=== PATIENT | female | born 1945 | race Caucasian/White ===

== ENCOUNTER 2017-02-14 16:47 | Emergency (ER) | payer OTHER ==
[~2017-02-14] VITALS: Ht 160 cm; Wt 49.3 kg
[~2017-02-14 16:47] MED LIST: ALPR-138 PO; ATOR40TA PO; FLUT50SP EACH NARE; HYDR12.56 PO; LEVO50TA4 PO; RANI150T PO; ULTR50TA PO
[2017-02-14 16:51] VITALS: BP 126/60; PULSE 69; RESP 16; TEMP 98; O2SAT 98
[2017-02-14] MEDS ORDERED: LIDOCAINE 1%/EPINEPHrine 1:100,000 SOLN 20 ML VIAL INFIL ONE (17:15)
--- NOTE | 2017-02-14 17:20 | PD ---
HPI Chief Complaint: Fall Time Seen by Provider: 17:14 Travel History International Travel<30 days: No Contact w/Intl Traveler<30days: No Traveled to known affect area: No History of Present Illness HPI 71-year-old female presents the emergency department with her granddaughter after being thrown from the back of a horse. Patient was wearing a riding helmet, and denies significant head trauma or loss of consciousness. She does have pain in the right hip/pelvis and lower back. Patient also has open wound to the right posterior elbow with mild bleeding. Patient has full range of motion of the right arm. Her pain is mainly localized in the right lower back and pelvis. She is able to bear weight. She denies dizziness, headache, neck pain, chest pain, thoracic wall pain, abdominal pain, or lower extremity pain of any kind. She is allergic to codeine. PFSH Past Medical History Anxiety: Yes Depression: Yes Cancer: No Cardiovascular Problems: No High Cholesterol: Yes Diabetes: No Diminished Hearing: No Endocrine: Yes GERD: Yes Genitourinary: No Immune Disorder: No Musculoskeletal: Yes Neurologic: No Psychiatric: Yes Reproductive: No Respiratory: No Thyroid Disease: Yes Menopausal: Yes Past Surgical History Oral Surgery: Yes (TONSILLECTOMY) Tonsillectomy: Yes Social History Alcohol Use: Yes (OCCASIONAL) Tobacco Use: No Substance Use: No Allergies-Medications (Allergen,Severity, Reaction): Coded Allergies: Codeine (Unverified Adverse Reaction, Unknown, nausea, 12/24/14) Reported Meds & Prescriptions Reported Meds & Active Scripts Active Ibuprofen 600 Mg Tab 600 Mg PO Q6H PRN Cephalexin 500 Mg Cap 500 Mg PO Q8H Bactrim DS (Sulfamethoxazole-Trimethoprim) 800-160 Mg Tab 1 Tab PO BID Non-Aspirin Pain Relief ES (Acetaminophen) 500 Mg Tab 1,000 Mg PO Q6HR PRN Ultram (Tramadol HCl) 50 Mg Tab 50 Mg PO Q6 PRN Reported Fluticasone Propionate (Nasal) 50 Mcg Spr 1 [place] EACH NARE BID Ranitidine 150 mg (Ranitidine HCl) 150 Mg Tab 1 Tab PO BID Levothyroxine 50 mcg (Levothyroxine Sodium) 50 Mcg Tab 50 Mcg PO DAILY Hydrochlorothiazide (Miscellaneous Medication) 12.5 Mg Cap 12.5 Mg PO DAILY Atorvastatin 40 mg (Atorvastatin Calcium) 40 Mg Tab 1 Tab PO HS Xanax (Alprazolam) 0.25 Mg Tab 0 PO BID UNKNOWN DOSE Review of Systems Except as stated in HPI: all other systems reviewed are Neg General / Constitutional: No: Fever Eyes: No: Visual changes HENT: No: Headaches Cardiovascular: No: Chest Pain or Discomfort Respiratory: No: Shortness of Breath Gastrointestinal: No: Abdominal Pain Genitourinary: No: Dysuria Musculoskeletal: No: Pain Skin: No Rash Neurologic: No: Weakness Psychiatric: No: Depression Endocrine: No: Polydipsia Hematologic/Lymphatic: No: Easy Bruising Physical Exam Narrative GENERAL: Patient appears in mild to moderate distress. Patient is ambulating with some difficulty. SKIN: Warm and dry. Normal color. Normal turgor. Patient has a full- thickness open wound to the right posterior elbow with a minimal amount of bleeding. There is some gravel noted around the wound site. HEAD: Atraumatic. Normocephalic. Nontender. EYES: Pupils equal and round. No scleral icterus. No injection or drainage. ENT: No nasal bleeding or discharge. Mucous membranes pink and moist. No dental injury. Pharynx is clear. Airway is patent. NECK: Trachea midline. No JVD. No bony tenderness or step-off. Neck is supple. CARDIOVASCULAR: Regular rate and rhythm. No murmurs gallops or rubs. RESPIRATORY: No accessory muscle use. Clear to auscultation. Breath sounds equal bilaterally. No thoracic wall tenderness. GASTROINTESTINAL: Abdomen soft, non-tender, nondistended. Hepatic and splenic margins not palpable. No CVA tenderness. MUSCULOSKELETAL: Extremities without clubbing, cyanosis, or edema. No obvious deformities. Patient has full range of motion of the right upper arm and elbow without significant pain or limitation. Left upper arm is normal. Lower extremities have no obvious deformities and full range of motion. Patient has tenderness along the L4 5 S1 region without specific bony tenderness or step- off. Patient is also somewhat tender in the right sacroiliac region. Again no obvious deformity or crepitus is appreciated. Pain is not worsened with hip compression or compression of the symphysis. Neurovascular exam is normal in all extremities. NEUROLOGICAL: Awake and alert. No obvious cranial nerve deficits. Motor grossly within normal limits. Five out of 5 muscle strength in the arms and legs. Normal speech. PSYCHIATRIC: Appropriate mood and affect; insight and judgment normal. Data Data Last Documented VS Vital Signs Date Time Temp Pulse Resp B/P Pulse Ox O2 Delivery O2 Flow Rate FiO2 02/14/17 16:51 98.0 69 16 126/[address] Brain W/O Iv Contrast(Rout) (02/14/17 17:05) Spine, Lumbar Comp W/Obliq (02/14/17 17:05) Elbow, Complete (4 Vws) (02/14/17 17:05) Lidocai-Epi 1%-1:100,000 Inj (Xylocaine- (02/14/17 17:15) Pelvis, Ap Only (Routine) (02/14/17 ) Sulfamet-Trimeth Ds 800-160 Mg (Bactrim (02/14/17 19:00) Cephalexin (Keflex) (02/14/17 19:00) Ibuprofen (Motrin) (02/14/17 19:00) Acetaminophen (Tylenol) (02/14/17 19:00) MDM Medical Decision Making Medical Screen Exam Complete: Yes Emergency Medical Condition: Yes Differential Diagnosis Fall from horse. Right elbow contusion. Right elbow laceration. Possible fracture. Lumbar pain. Sacroiliac pain. Possible fracture. Narrative Course Patient is in pain but able to ambulate and appears medically stable at time of exam. X-rays of the right elbow, lumbar spine, pelvis, and CT of the head ordered. Laceration to the right elbow is repaired. Please see procedure note. CT of the head is negative for acute process. X-rays of the lumbar spine and pelvis are unremarkable except for compression fracture of the L1 which was old when the patient. Right elbow x-ray is negative. Patient is given ibuprofen 600 mg by mouth as well as 1000 mg of acetaminophen by mouth. Patient is given her first dose of Keflex 500 mg by mouth as well as Bactrim DS by mouth 1. Patient will be continued on Bactrim DS twice a day 7 days. Patient is also on Keflex 500 mg 3 times a day 7 days. Patient is given ibuprofen and Tylenol as well for pain. Wound is to be kept covered with dressing applied today and follow-up in 2 days for wound check. Sutures should remain in place for 10 days. Patient should follow-up sooner with any worsening symptoms as discussed. Procedures Procedure Narrative LACERATION LOCATION: Right posterior elbow LENGTH: 2.5 cm NUMBER OF STITCHES/NATALYA: 3 deep Vicryl simple interrupted sutures. 3 interrupted vertical mattress Prolene sutures REPAIR: The area of the laceration was prepped with Betadine and sterilely draped. The laceration was infiltrated with 5 mL 1% lidocaine with epi. The wound was copiously irrigated and explored with irrigation and removal of foreign body, no tendon injury or neurovascular injury identified. The wound was closed using 4-0 Vicryl, and 4-0 Prolene. This was a double layer repair. A sterile dressing was applied. The patient was advised to keep the dressing clean and dry. Patient tolerated the procedure well. Diagnosis Primary Impression: Animal-rider injured by fall from or being thrown from horse in noncollision accident, initial encounter Additional Impressions: Laceration of right elbow with foreign body Qualified Code: S51.021A - Laceration of right elbow with foreign body, initial encounter Acute lumbar myofascial strain Contusion of right hip, initial encounter Referrals: Primary Care Physician Patient Instructions: Contusion in Adults (ED), General Instructions, Laceration (ED), Muscle Strain (ED) Additional Instructions: CT of the head is negative for acute process. X-rays of the lumbar spine and pelvis are unremarkable except for compression fracture of the L1 which was old when the patient. Right elbow x-ray is negative. Patient is given ibuprofen 600 mg by mouth as well as 1000 mg of acetaminophen by mouth. Patient is given her first dose of Keflex 500 mg by mouth as well as Bactrim DS by mouth 1. Patient will be continued on Bactrim DS twice a day 7 days. Patient is also on Keflex 500 mg 3 times a day 7 days. Patient is given ibuprofen and Tylenol as well for pain. Wound is to be kept covered with dressing applied today and follow-up in 2 days for wound check. Sutures should remain in place for 10 days. Patient should follow-up sooner with any worsening symptoms as discussed. Med/Other Pt SpecificInfo: Prescription(s) given, Wound Care Scripts Ibuprofen 600 Mg [id number] Mg PO Q6H PRN (Pain/Inflammation) #40 TAB Prov:Michelle Montanez MD 02/14/17 Cephalexin 500 Mg [id number] Mg PO Q8H #21 CAP Prov:Michelle Montanez MD 02/14/17 Sulfamethoxazole-Trimethoprim (Bactrim DS)800-160 Mg Tab1 Tab PO BID #14 TAB Prov:Michelle Montanez MD 02/14/17 Acetaminophen (Non-Aspirin Pain Relief ES)500 Mg Tab1,000 Mg PO Q6HR PRN (PAIN) #60 TAB Prov:Michelle Montanez MD 02/14/17 Disposition: 01 DISCHARGE HOME Condition: Stable Sarbjit Shaikh Feb 14, 2017 17:20
--- NOTE | 2017-02-14 18:19 | RADRPT ---
EXAM DATE/TIME: 02/14/2017 17:45 [facility] COMPARISON: No previous studies available for comparison. INDICATIONS : Pelvic pain after falling off a horse today. MEDICAL HISTORY : None. SURGICAL HISTORY : None. ENCOUNTER: Initial ACUITY: 1 day PAIN SCORE: 5/10 LOCATION: Lower back. FINDINGS: A single frontal view of the pelvis demonstrates no evidence of fracture. The bony pelvic ring is in tact. Bony mineralization is normal. The soft tissues are intact. CONCLUSION: No acute disease. Thomas Mcclendon MD on February 14, 2017 at 18:17 Board Certified Radiologist. This report was verified electronically.
--- NOTE | 2017-02-14 18:19 | RADRPT ---
EXAM DATE/TIME: 02/14/2017 17:38 [facility] COMPARISON: No previous studies available for comparison. INDICATIONS : Right elbow abrasions after falling off a horse today. MEDICAL HISTORY : None. SURGICAL HISTORY : None. ENCOUNTER: Initial ACUITY: 1 day PAIN SCORE: 5/10 LOCATION: Right posterior elbow. FINDINGS: Multiple view examination of the right elbow demonstrates soft tissue laceration without joint effusi on, or fracture. Debris in the soft tissues. The osseous structures are in normal alignment. Bony m ineralization is normal. CONCLUSION: Soft tissue laceration/abrasion with debris in the soft tissues. Thomas Mcclendon MD on February 14, 2017 at 18:16 Board Certified Radiologist. This report was verified electronically.
--- NOTE | 2017-02-14 18:20 | RADRPT ---
EXAM DATE/TIME: 02/14/2017 17:46 [facility] COMPARISON: No previous studies available for comparison. INDICATIONS : Fell off of horse. RADIATION DOSE: 57.65 CTDIvol (mGy) MEDICAL HISTORY : None SURGICAL HISTORY : Tonsillectomy. ENCOUNTER: Initial ACUITY: 1 day PAIN SCALE: 5/10 LOCATION: cranial TECHNIQUE: Multiple contiguous axial images were obtained of the head. Using automated exposure control and adj ustment of the mA and/or kV according to patient size, radiation dose was kept as low as reasonably a chievable to obtain optimal diagnostic quality images. DICOM format image data is available electro nically for review and comparison. FINDINGS: CEREBRUM: The ventricles are normal for age. No evidence of midline shift, mass lesion, hemorrhage or acute in farction. No extra-axial fluid collections are seen. POSTERIOR FOSSA: The cerebellum and brainstem are intact. The 4th ventricle is midline. The cerebellopontine angle i s unremarkable. EXTRACRANIAL: The visualized portion of the orbits is intact. SKULL: The calvaria is intact. No evidence of skull fracture. CONCLUSION: No acute intracranial disease. Thomas Mcclendon MD on February 14, 2017 at 18:18 Board Certified Radiologist. This report was verified electronically.
--- NOTE | 2017-02-14 18:21 | RADRPT ---
EXAM DATE/TIME: 02/14/2017 17:46 [facility] COMPARISON: No previous studies available for comparison. INDICATIONS : Lower back pain after falling off a horse today. MEDICAL HISTORY : None. SURGICAL HISTORY : None. ENCOUNTER: Initial ACUITY: 1 day PAIN SCORE: 5/10 LOCATION: Lumbar. FINDINGS: There are five non-rib bearing vertebral bodies. The vertebral bodies are in normal alignment withou t evidence of subluxation or scoliosis. The disc spaces are maintained. The posterior elements are intact without evidence of spondylolysis. The pedicles are intact. Bony mineralization is normal. Mild wedging at L1. CONCLUSION: 1. Mild wedging compression fracture at L1 of indeterminate age but could be acute. 2. Otherwise degenerative changes and no other fracture. Thomas Mcclendon MD on February 14, 2017 at 18:19 Board Certified Radiologist. This report was verified electronically.
[2017-02-14] MEDS ORDERED: NON-500T13 PO (18:52)
[2017-02-14] MEDS ORDERED: CEPH500C PO (18:52)
[2017-02-14] MEDS ORDERED: IBUP-232 PO (18:52)
[2017-02-14] MEDS ORDERED: BACT800T5 PO (18:52)
[2017-02-14] MEDS ORDERED: IBUPROFEN 600 MG TAB PO ONE (19:00)
[2017-02-14] MEDS ORDERED: SULFAMETHOXAZOLE-TRIMETHOPRIM DS 800-160 MG TAB PO ONE (19:00)
[2017-02-14] MEDS ORDERED: ACETAMINOPHEN 500 MG CPLT PO ONE (19:00)
[2017-02-14] MEDS ORDERED: CEPHALEXIN MONOHYDRATE 500 MG CAP PO ONE (19:00)
== END 2017-02-14 19:31 | disposition home or self-care (01) ==
LOC: PHEFT 16:47
DX: S51.021A Laceration with foreign body of right elbow, initial encounter (principal); S39.012A Strain of muscle, fascia and tendon of lower back, initial encounter; S70.01XA Contusion of right hip, initial encounter; E07.9 Disorder of thyroid, unspecified; E78.00 Pure hypercholesterolemia, unspecified; Z86.59 Personal history of other mental and behavioral disorders; Z87.19 Personal history of other diseases of the digestive system; Z87.39 Personal history of other diseases of the musculoskeletal system and connective tissue; V80.010A Animal-rider injured by fall from or being thrown from horse in noncollision accident, initial encounter
CPT/HCPCS: 12031; 70450; 72110; 72170; 73080

== ENCOUNTER 2017-02-16 18:14 | Emergency (ER) | payer OTHER ==
[~2017-02-16] VITALS: Ht 160 cm; Wt 50.4 kg
[~2017-02-16 18:14] MED LIST changes: +BACT800T5 PO; +CEPH500C PO; +IBUP-232 PO; +NON-500T13 PO
[2017-02-16 18:18] VITALS: BP 111/55; PULSE 64; RESP 16; TEMP 97.7; O2SAT 96
[2017-02-16] MEDS ORDERED: ALPR.25 PO (18:30)
[2017-02-16] MEDS ORDERED: HYDR12.57 PO (18:30)
[2017-02-16] MEDS ORDERED: LEVO50TA4 PO (18:30)
[2017-02-16] MEDS ORDERED: ATOR40TA16 PO (18:30)
[2017-02-16] MEDS ORDERED: OMEP40CA2 PO (18:30)
[2017-02-16] MEDS ORDERED: FLUT50SP EACH NARE (18:30)
[2017-02-16] MEDS ORDERED: LEVOTAB PO (18:30)
--- NOTE | 2017-02-16 18:34 | PD ---
HPI Chief Complaint: Wound/Suture/Staple Re-Check Time Seen by Provider: 18:22 Travel History International Travel<30 days: No Contact w/Intl Traveler<30days: No Traveled to known affect area: No History of Present Illness HPI 71-year-old female presents the emergency department status post fall from a horse with laceration to the right posterior elbow. Patient was seen by myself 2 days ago and had laceration repair to the right posterior elbow. She is here for recheck and dressing change. Patient has no significant acute complaints. She's been taking Keflex and Bactrim as prescribed. She states her hip and back pain is gradually improving. She denies fever or chills. She is allergic to codeine. PFSH Past Medical History Hx Anticoagulant Therapy: No Anxiety: Yes Depression: Yes Cancer: No Cardiovascular Problems: No High Cholesterol: Yes Diabetes: No Diminished Hearing: No Endocrine: Yes GERD: Yes Genitourinary: No Immune Disorder: No Musculoskeletal: Yes Neurologic: No Psychiatric: Yes Reproductive: No Respiratory: No Thyroid Disease: Yes ?: Not Menopausal: Yes Past Surgical History Oral Surgery: Yes (TONSILLECTOMY) Tonsillectomy: Yes Social History Alcohol Use: Yes (OCCASIONAL) Tobacco Use: No Substance Use: No Allergies-Medications (Allergen,Severity, Reaction): Coded Allergies: Codeine (Unverified Adverse Reaction, Unknown, nausea, 02/16/17) Reported Meds & Prescriptions Reported Meds & Active Scripts Active Ibuprofen 600 Mg Tab 600 Mg PO Q6H PRN Cephalexin 500 Mg Cap 500 Mg PO Q8H Bactrim DS (Sulfamethoxazole-Trimethoprim) 800-160 Mg Tab 1 Tab PO BID Non-Aspirin Pain Relief ES (Acetaminophen) 500 Mg Tab 1,000 Mg PO Q6HR PRN Ultram (Tramadol HCl) 50 Mg Tab 50 Mg PO Q6 PRN Reported Fluticasone Propionate (Nasal) 50 Mcg Spr 1 [place] EACH NARE BID Ranitidine 150 mg (Ranitidine HCl) 150 Mg Tab 1 Tab PO BID Levothyroxine 50 mcg (Levothyroxine Sodium) 50 Mcg Tab 50 Mcg PO DAILY Hydrochlorothiazide (Miscellaneous Medication) 12.5 Mg Cap 12.5 Mg PO DAILY Atorvastatin 40 mg (Atorvastatin Calcium) 40 Mg Tab 1 Tab PO HS Xanax (Alprazolam) 0.25 Mg Tab 0 PO BID UNKNOWN DOSE Review of Systems Except as stated in HPI: all other systems reviewed are Neg General / Constitutional: No: Fever Eyes: No: Visual changes HENT: No: Headaches Cardiovascular: No: Chest Pain or Discomfort Respiratory: No: Shortness of Breath Gastrointestinal: No: Abdominal Pain Genitourinary: No: Dysuria Musculoskeletal: No: Pain Skin: No Rash Neurologic: No: Weakness Psychiatric: No: Depression Endocrine: No: Polydipsia Hematologic/Lymphatic: No: Easy Bruising Physical Exam Narrative GENERAL: Patient is ambulatory to the room without difficulty and in no acute distress. SKIN: Warm and dry. Normal color. Normal turgor. Exam of the right elbow shows what appears to be a well-healing laceration with [address]. There is some localized swelling and induration but no obvious signs of cellulitis or bursitis. There is no obvious wound dehiscence. Pain is minimal. HEAD: Atraumatic. Normocephalic. EYES: Pupils equal and round. No scleral icterus. No injection or drainage. ENT: No nasal bleeding or discharge. Mucous membranes pink and moist. Pharynx is clear. NECK: Trachea midline. Supple and nontender. CARDIOVASCULAR: Regular rate and rhythm. RESPIRATORY: No accessory muscle use. Clear to auscultation. Breath sounds equal bilaterally. MUSCULOSKELETAL: Extremities without clubbing, cyanosis, or edema. No obvious deformities. Range of motion of the right arm is full. NEUROLOGICAL: Awake and alert. No obvious cranial nerve deficits. Motor grossly within normal limits. Five out of 5 muscle strength in the arms and legs. Normal speech. PSYCHIATRIC: Appropriate mood and affect; insight and judgment normal. Data Data Last Documented VS Vital Signs Date Time Temp Pulse Resp B/P Pulse Ox O2 Delivery O2 Flow Rate FiO2 02/16/17 18:18 97.7 64 16 111/55 96 MDM Medical Decision Making Medical Screen Exam Complete: Yes Emergency Medical Condition: Yes Medical Record Reviewed: Yes Differential Diagnosis Fall from horse. Right elbow laceration. Wound check. Narrative Course Dressing is removed and new dressing is put in place. Wound instructions are reviewed with the patient. Patient is to finish antibiotics as previously prescribed. Sutures should remain in place for the next 8 days. Patient can return here or follow up with her primary care physician for suture removal at that time. Patient should return earlier with any worsening symptoms as needed. Diagnosis Primary Impression: Laceration of right elbow with foreign body Qualified Code: S51.021D - Laceration of right elbow with foreign body, subsequent encounter Additional Impression: Suture check Patient Instructions: General Instructions, Laceration (ED) Additional Instructions: Dressing is removed and new dressing is put in place. Wound instructions are reviewed with the patient. Patient is to finish antibiotics as previously prescribed. Sutures should remain in place for the next 8 days. Patient can return here or follow up with her primary care physician for suture removal at that time. Patient should return earlier with any worsening symptoms as needed. Med/Other Pt SpecificInfo: No Change to Meds, Wound Care Disposition: 01 DISCHARGE HOME Condition: Stable Sarbjit Shaikh Feb 16, 2017 18:34
== END 2017-02-16 19:08 | disposition home or self-care (01) ==
LOC: PHED 18:14
DX: S51.021D Laceration with foreign body of right elbow, subsequent encounter (principal); V80.010D Animal-rider injured by fall from or being thrown from horse in noncollision accident, subsequent encounter
CPT/HCPCS: 99281